=== PATIENT | female | born 1940 | race Caucasian/White ===

== ENCOUNTER 2020-12-17 09:15 | Outpatient (CLI) | payer MEDICARE, OTHER, SELFPAY ==
[2020-12-17 09:55] LABS: Basophils Absolute Auto 0.1 K/mm3 (0.0-0.1); Basophils Percent Auto 1.2 % (0.2-1.2); Eosinophils Absolute Auto 0.2 K/mm3 (0-0.3); Eosinophils Percent Auto 3.8 % (0-4.4); Hematocrit 43.9 % (37.0-47.0); Hemoglobin 14.1 g/dL (12.0-15.0); Immature Granulocyte Absolute 0.01 K/mm3 (0.00-0.031); Immature Granulocyte Percent A 0.2 % (0-0.5); Lymphocytes Absolute Auto 2.13 K/mm3 (0.9-3.2); Lymphocytes Percent Auto 36.6 % (18.3-44.2); Mean Corpuscular HGB Conc 32.1 g/dl (32-36); Mean Corpuscular Hemoglobin 31.1 pg (26-34); Mean Corpuscular Volume 96.7 fl (80-100); Mean Platelet Volume 11.3 fl (7.4-10.4); Monocytes Absolute Auto 0.5 K/mm3 (0.1-0.6); Monocytes Percent Auto 7.9 % (2.6-8.5); Neutrophils Absolute Auto 2.9 K/mm3 (1.3-6.7); Neutrophils Percent Auto 50.3 % (45.5-73.1); Platelet Count Result 175 k/mm3 (150-375); Red Blood Count 4.54 M/mm3 (4.2-5.4); Red Cell Distribution Width 13.2 % (11.5-14.5); White Blood Count 5.8 K/mm3 (4.5-10.0)
[2020-12-17 10:17] LABS: Alanine Aminotransferase 19 U/L (4-35); Albumin Level 4.4 g/dL (3.5-5.1); Alkaline Phosphatase 107 U/L (38-126); Anion Gap 8 mmol/L (8-16); Aspartate Amino Transferase 28 U/L (14-36); Bilirubin,Total 0.7 mg/dL (0.2-1.3); Blood Urea Nitrogen 36 mg/dL (7-17); Calcium 9.8 mg/dL (8.4-10.2); Carbon Dioxide 28 mmol/L (22-30); Chloride 106 mmol/L (98-107); Estimated Glomerular Filt Rate 33; Glucose 112 mg/dL (65-105); Potassium 4.9 mmol/L (3.4-5.0); Sodium 142 mmol/L (137-145)
== END 2020-12-17 09:16 | disposition home or self-care (01) ==
LOC: ANHLAB 09:24
PROVIDERS: PCP Internal Medicine; Visit Provider Internal Medicine Cardiovascular Disease
DX: R06.00 Dyspnea, unspecified (principal)
CPT/HCPCS: 36415; 80053; 84443; 85025

== ENCOUNTER 2021-02-02 08:34 | Outpatient (CLI) | payer MEDICARE, OTHER, SELFPAY ==
--- NOTE | 2021-02-18 14:57 | WPDHOMESLEEP ---
Sleep Study - Home Unattended Date of Study: 02/02/21 Ordering Provider: Edwardo Clarke MD Interpreting Provider: Jolly Song MD Home Sleep Study Type: Apnea Link Air Height: 1.6 m Weight: 99.79 kg Body Mass Index: 38.9 Neck Circumference (inches): 12.5 [place]: 8 Reason for Sleep Study history of untreated obstructive sleep apnea, increased shortness of breath with exertion, fatigue and swelling Sleep History Lilia Acuna is a 80 year old female referred by Dr Clarke for untreated obstructive sleep apnea. She is having increasing shortness of breath with exertion and increased lower extremity swelling. She has shortness of breath, fatigue, poor exercise tolerance and lower extremity swelling. She has nasal allergies. Her sleep evaluation is requested to see if sleep apnea is the cause for a many of the symptoms. She does not awaken from sleep feeling short of breath. She does not awaken at night with heartburn, belching or coughing. She rarely snores. She does not snore loudly enough that others complain about it. She frequently has trouble sleep with a cold. She does not wake up gasping for breath at night. She occasionally has breathing problems observed by others during the night. She does not sweat excessively at night or noticed her heart pounding or beating irregularly at night. She does not fall asleep during the day nor fall asleep involuntarily. She does not fall asleep while driving. She does not fall asleep while exerting physical effort. She does not have loss of muscle tone with strong emotion. She does not have daytime difficulties due to excessive sleepiness. She does not feel paralyzed on waking or falling asleep, and does not have vivid dreamlike scenes upon awakening or falling asleep. She is not afraid to go to sleep. She does not have nightmares. She occasionally remembers her dreams. She occasionally has racing thoughts. She does not feel sad, depressed or anxious. She does not have muscular tension. She does not notice parts of her body jerking. She does not kick at night. She occasionally has crawling and aching feelings in her legs. She occasionally has leg pain at night. She does not have morning jaw pain. She does not grind her teeth during sleep. She frequently is bothered by pain during the day and awakened by pain during the night. She frequently wakes up feeling stiff in the morning with sore or achy muscles. She never wakes up with pain in the spine. Normal bedtime is 10:30 p.m. falling asleep within 1/2 hour waking 1 or 2 times at night to urinate and then she returns to sleep within 30 minutes or sometimes as long as an hour. She wakes the morning between 8 and 9:00 a.m.. Her weekend schedule is the same. She takes naps in the afternoon or evening. A short nap may be refreshing. She feels better in the morning compared other times of day. Habits: Never smoked tobacco. Caffeine 1 or 2 daily. No alcohol or recreational drugs. [facility] Past Medical History Medical History (Updated 02/18/21 @ 15:13 by Jolly Song MD) Arthritis Hyperlipidemia Hypertension Lower extremity edema Obstructive sleep apnea Surgical History Surgical History (Updated 02/18/21 @ 15:17 by Jolly Song MD) History of appendectomy History of left knee replacement History of tonsillectomy Family History Family History (Updated 02/18/21 @ 15:15 by Jolly Song MD) Mother Breast cancer Lung cancer Father Cerebrovascular accident Diabetes mellitus Sibling Heart disease Social History Social History (Updated 02/18/21 @ 15:16 by Jolly Song MD) Smoking status: Never smoker Alcohol intake: never Substance use: never Medications Medications: atorvastatin 10 mg a day calcium carbonate/ vitamin D3 1 tablet b.i.d. vitamin B12 a 1000 mcg by mouth b.i.d. fluticasone propionate 50 mcg per spray 2 sprays each nostril daily telmisartan 80 mg a day amlodipine
[2021-02-18 15:31] VITALS: BMI 38.9
== END 2021-02-03 10:02 | disposition home or self-care (01) ==
LOC: ANHCSM 08:34
PROVIDERS: PCP Internal Medicine; Visit Provider Internal Medicine Cardiovascular Disease
DX: G47.33 Obstructive sleep apnea (adult) (pediatric) (principal)
CPT/HCPCS: 95806

== ENCOUNTER → 2021-03-05 04:59 | Outpatient (CLI) | payer MEDICARE, OTHER, SELFPAY ==
[2021-03-05 18:47] LABS: SARS-CoV-2 RNA PCR Negative
== END ==
PROVIDERS: PCP Internal Medicine; Visit Provider Internal Medicine Critical Care Medicine
DX: Z01.812 Encounter for preprocedural laboratory examination (principal); Z20.822 Contact with and (suspected) exposure to COVID-19
CPT/HCPCS: C9803; U0003; U0005

== ENCOUNTER 2021-03-08 09:26 | Outpatient (CLI) | payer MEDICARE, OTHER, SELFPAY ==
--- NOTE | 2021-03-26 09:02 | WPDSLEEPSTUD ---
Sleep Study Date of Study: 03/08/21 Ordering Provider: Edwardo Clarke MD Interpreting Physician: Jolly Song MD Sleep Study Type: CPAP Titration Height: 1.6 m Weight: 99.8 kg Body Mass Index: 38.9 Neck Circumference (inches): 14 [place]: 7 Reason for Sleep Study Home Sleep Test February 02, 2021 with mild obstructive sleep apnea, AHI 6, 42% central events 58% obstructive events, presents for CPAP titration Sleep History Lilia Acuna is a 80 year old female referred by Dr Clarke for untreated obstructive sleep apnea. She is having increasing shortness of breath with exertion and increased lower extremity swelling. She has shortness of breath, fatigue, poor exercise tolerance and lower extremity swelling. She has nasal allergies. Her sleep evaluation is requested to see if sleep apnea is the cause for a many of the symptoms. She does not awaken from sleep feeling short of breath. She does not awaken at night with heartburn, belching or coughing. She rarely snores. She does not snore loudly enough that others complain about it. She frequently has trouble sleep with a cold. She does not wake up gasping for breath at night. She occasionally has breathing problems observed by others during the night. She does not sweat excessively at night or noticed her heart pounding or beating irregularly at night. She does not fall asleep during the day nor fall asleep involuntarily. She does not fall asleep while driving. She does not fall asleep while exerting physical effort. She does not have loss of muscle tone with strong emotion. She does not have daytime difficulties due to excessive sleepiness. She does not feel paralyzed on waking or falling asleep, and does not have vivid dreamlike scenes upon awakening or falling asleep. She is not afraid to go to sleep. She does not have nightmares. She occasionally remembers her dreams. She occasionally has racing thoughts. She does not feel sad, depressed or anxious. She does not have muscular tension. She does not notice parts of her body jerking. She does not kick at night. She occasionally has crawling and aching feelings in her legs. She occasionally has leg pain at night. She does not have morning jaw pain. She does not grind her teeth during sleep. She frequently is bothered by pain during the day and awakened by pain during the night. She frequently wakes up feeling stiff in the morning with sore or achy muscles. She never wakes up with pain in the spine. Normal bedtime is 10:30 p.m. falling asleep within 1/2 hour waking 1 or 2 times at night to urinate and then she returns to sleep within 30 minutes or sometimes as long as an hour. She wakes the morning between 8 and 9:00 a.m.. Her weekend schedule is the same. She takes naps in the afternoon or evening. A short nap may be refreshing. She feels better in the morning compared other times of day. Habits: Never smoked tobacco. Caffeine 1 or 2 daily. No alcohol or recreational drugs. [facility] Past Medical History Medical History Arthritis Hyperlipidemia Hypertension Lower extremity edema Obstructive sleep apnea Surgical History Surgical History History of appendectomy History of left knee replacement History of tonsillectomy Family History Family History Mother Breast cancer Lung cancer Father Cerebrovascular accident Diabetes mellitus Sibling Heart disease Social History Social History Smoking status: Never smoker Alcohol intake: never Substance use: never Medications Medications: amlodipine 10 mg a day atorvastatin 10 mg; a half tablet daily calcium carbonate with vitamin-D 1 twice a day coli enzyme Q10 100 mg twice a day B12 a 1000 mcg b.i.d. Flonase nasal spray 2 sprays each
[2021-03-26 13:45] VITALS: BMI 38.9
== END 2021-03-09 07:35 | disposition home or self-care (01) ==
LOC: ANHCSM 09:27
PROVIDERS: PCP Internal Medicine; Visit Provider Internal Medicine Cardiovascular Disease
DX: G47.33 Obstructive sleep apnea (adult) (pediatric) (principal); Z68.39 Body mass index [BMI] 39.0-39.9, adult
CPT/HCPCS: 95811

== ENCOUNTER 2021-03-10 10:18 | Outpatient (CLI) | payer MEDICARE, OTHER, SELFPAY ==
[2021-03-10 11:15] LABS: Hemoglobin 12.4 g/dL (12.0-15.0); Mean Corpuscular HGB Conc 31.8 g/dl (32-36); Mean Corpuscular Hemoglobin 30.5 pg (26-34); Mean Corpuscular Volume 96.1 fl (80-100); Platelet Count Result 161 k/mm3 (150-375); Red Blood Count 4.06 M/mm3 (4.2-5.4); White Blood Count 5.4 K/mm3 (4.5-10.0)
[2021-03-10 11:19] LABS: Albumin Level 4.2 g/dL (3.5-5.1); Anion Gap 9 mmol/L (8-16); Blood Urea Nitrogen 26 mg/dL (7-17); Calcium 9.5 mg/dL (8.4-10.2); Carbon Dioxide 25 mmol/L (22-30); Chloride 111 mmol/L (98-107); Estimated Glomerular Filt Rate 43; Glucose 153 mg/dL (65-105); Sodium 145 mmol/L (137-145)
[2021-03-10 11:27] LABS: Complement C3 116 mg/dL (88-165)
[2021-03-10 11:27] LABS: Add Urine Microscopic? YES; Appearance Urine Clear (Clear); Bilirubin Urine Negative (Negative); Blood Urine Negative (Negative); Color Urine Straw (Yellow); Glucose Urine UA Negative (Negative); Ketones Urine Negative (Negative); Leukocyte Esterase Ur Trace LEU/UL (Negative); Mucus Urine Rare /lpf; Nitrate Urine Negative (Negative); Protein Urine Negative (Negative); RBC Urine 0-2 /hpf (0-2); Specific Grav Ur 1.011 (1.001-1.035); Squamous Epithelial Cell Urine Rare /hpf (Few); Urobilinogen Urine Negative mg/dL (<2.0)
[2021-03-10 11:28] LABS: Creatinine Urine 44.9 mg/dL; Total Protein Urine Random 11 mg/dL; Ur Ttl Prot Creatinine Ratio 0.24 mg/mg (0-0.20)
[2021-03-10 11:31] LABS: Parathyroid Intact 63.3 pg/mL (7.5-53.5)
[2021-03-10 12:07] LABS: Erythrocyte Sedimentation Rate 28 mm/hr (0-20)
[2021-03-12 15:16] LABS: Complement Total CH50 >60 U/mL (31-60)
[2021-03-13 06:15] LABS: Kappa\\Lambda Light Chains 1.31 (0.26-1.65); Lambda Light Chain 19.9 mg/L (5.7-26.3)
== END 2021-03-10 10:19 | disposition home or self-care (01) ==
PROVIDERS: PCP Internal Medicine; Visit Provider Internal Medicine Nephrology
DX: N18.32 Chronic kidney disease, stage 3b (principal)
CPT/HCPCS: 36415; 80069; 81001; 82570; 83883; 83970; 84156; 85027; 85652; 86038; 86039; 86160; 86162; 86334; 87086; 87088

== ENCOUNTER 2021-03-12 10:20 | Outpatient (CLI) | payer MEDICARE, OTHER, SELFPAY ==
[2021-03-18 05:52] LABS: Albumin 49 %; Creat 24 Hr 0.96 g/24 h (0.50-2.15); Measured Kappa Chains <1.00 mg/dL (<2.00); Measured Lambda Chains <1.00 mg/dL (<2.00); Pro/Creat Ratio 135 mg/g creat (<=114)
== END 2021-03-12 10:21 | disposition home or self-care (01) ==
PROVIDERS: PCP Internal Medicine; Visit Provider Internal Medicine Nephrology
DX: N18.32 Chronic kidney disease, stage 3b (principal)
CPT/HCPCS: 86335

== ENCOUNTER → 2021-03-17 10:49 | Outpatient (CLI) | payer MEDICARE, OTHER, SELFPAY ==
--- NOTE | ~2021-03-17 | US_ITS ---
EXAMINATION: US renal BI DATE: 03/17/2021 11:08 INDICATION: Stage III B chronic kidney disease TECHNIQUE: Multiple grayscale and Doppler ultrasound images of the kidneys were obtained. COMPARISON: None. FINDINGS: The right kidney measures 8.9 x 4.9 x 4.7 cm. The left kidney measures 9.5 x 4.8 x 4.8 cm a nd contains a 1.6 cm cyst. The kidneys demonstrate normal parenchymal echogenicity. There is no hydro nephrosis. The bladder is normal. IMPRESSION: 1. Normal kidneys without hydronephrosis. Reviewed, dictated and finalized at location B.
== END ==
PROVIDERS: PCP Internal Medicine; Visit Provider Internal Medicine Nephrology
DX: N18.32 Chronic kidney disease, stage 3b (principal)
CPT/HCPCS: 76775

== ENCOUNTER 2021-03-29 09:38 | Outpatient (CLI) | payer MEDICARE, OTHER, SELFPAY ==
[2021-03-29 10:33] LABS: Albumin Level 4.3 g/dL (3.5-5.1); Anion Gap 10 mmol/L (8-16); Blood Urea Nitrogen 44 mg/dL (7-17); Calcium 9.7 mg/dL (8.4-10.2); Carbon Dioxide 23 mmol/L (22-30); Chloride 109 mmol/L (98-107); Estimated Glomerular Filt Rate 31; Glucose 85 mg/dL (65-105); Phosphorus 4.2 mg/dL (2.5-4.5); Potassium 4.3 mmol/L (3.4-5.0); Sodium 142 mmol/L (137-145)
== END 2021-03-29 09:39 | disposition home or self-care (01) ==
LOC: ANHLAB 09:45
PROVIDERS: PCP Internal Medicine; Visit Provider Internal Medicine Nephrology
DX: R94.4 Abnormal results of kidney function studies (principal)
CPT/HCPCS: 36415; 80069

== ENCOUNTER → 2021-04-02 14:43 | Outpatient (CLI) | payer MEDICARE, OTHER, SELFPAY ==
--- NOTE | ~2021-04-02 | CT_ITS ---
EXAMINATION: CT abdomen pelvis wo con DATE: 04/02/2021 15:03 INDICATION: Generalized edema. TECHNIQUE: Computed tomography (CT) of the abdomen and pelvis was performed without intravenous contr ast. Automated exposure control and iterative reconstruction technique were employed. The dose-length product was 986.90 mGy-cm. COMPARISON: None FINDINGS: Calcified nodule at the lingula along with several scattered splenic calcifications consistent with o ld granulomatous disease. Mild bronchiectasis in the bilateral lower lobes. Scattered groundglass and reticular opacities at the bilateral lung bases which in the acute setting could represent mild pulm onary edema or more chronic interstitial lung disease with nonspecific interstitial pneumonia (NSIP) pattern heart size is normal. No pericardial or pleural effusion. Small sliding-type hiatal hernia. L iver, gallbladder, pancreas and bilateral adrenal glands are normal. No urolithiasis or hydronephrosi s. There are few small peripelvic cysts at the right renal hilum. There is moderate colonic diverticu losis with a sigmoid predominance. There is no adjacent inflammatory change to suggest diverticulitis . No bowel obstruction. Appendix is not visualized and reportedly surgically absent. Bladder, uterus and bilateral adnexa are unremarkable. No free intraperitoneal gas or fluid. No pathologically enlar ged abdominal or pelvic lymphadenopathy. L5 spondylolysis with bilateral pars intra-articular is defe cts and 7 mm anterolisthesis on S1. There are bridging osteophytes at multiple levels in the lower th oracic spine, consistent with diffuse idiopathic skeletal hyperostosis (DISH). Mild to moderate bilat eral hip osteoarthritis. IMPRESSION: 1. Bibasilar lung disease which could represent acute pulmonary edema or more chronic interstitial fi brosis with NSIP pattern. 2. Sigmoid predominant diverticulosis. 3. Small sliding-type hiatal hernia. Reviewed, dictated and finalized at location A. IMPRESSION: 1. Bibasilar lung disease which could represent acute pulmonary edema or more c hronic interstitial fibrosis with NSIP pattern. 2. Sigmoid predominant diverticulosis. 3. Small sliding-type hiatal hernia.
== END ==
PROVIDERS: PCP Internal Medicine; Visit Provider Internal Medicine Nephrology
DX: R60.1 Generalized edema (principal); J98.4 Other disorders of lung; K57.30 Diverticulosis of large intestine without perforation or abscess without bleeding; K44.9 Diaphragmatic hernia without obstruction or gangrene
CPT/HCPCS: 74176

== ENCOUNTER 2021-04-06 10:33 | Outpatient (CLI) | payer MEDICARE, OTHER, SELFPAY ==
--- NOTE | ~2021-04-06 | US_ITS ---
EXAMINATION: US venous doppler [facility] DATE: 04/06/2021 11:05 INDICATION: Lower limb swelling TECHNIQUE: Grayscale ultrasound images without and with compression and Doppler ultrasound images of the bilateral lower extremity veins were obtained. COMPARISON: None. FINDINGS: The visualized portions of right common femoral vein, profunda (deep) femoral vein, femoral vein, pop liteal vein, posterior tibial veins, peroneal veins, gastrocnemius vein and greater saphenous vein ou tflow are patent. The visualized portions of left common femoral vein, profunda femoral vein, femoral vein, popliteal v ein, posterior tibial veins, peroneal veins, gastrocnemius vein and greater saphenous vein outflow ar e patent. IMPRESSION: 1. No deep venous thrombosis in either lower limb. Reviewed, dictated and finalized at location A.
== END 2021-04-06 10:34 | disposition home or self-care (01) ==
PROVIDERS: PCP Internal Medicine; Visit Provider Internal Medicine Nephrology
DX: R60.9 Edema, unspecified (principal)
CPT/HCPCS: 93970

== ENCOUNTER 2021-04-09 10:11 | Outpatient (CLI) | payer MEDICARE, OTHER, SELFPAY ==
[2021-04-09 11:17] LABS: Albumin Level 4.5 g/dL (3.5-5.1); Anion Gap 11 mmol/L (8-16); Blood Urea Nitrogen 58 mg/dL (7-17); Calcium 10.3 mg/dL (8.4-10.2); Carbon Dioxide 26 mmol/L (22-30); Chloride 104 mmol/L (98-107); Estimated Glomerular Filt Rate 20; Glucose 133 mg/dL (65-110); Phosphorus 4.5 mg/dL (2.5-4.5); Potassium 5.1 mmol/L (3.4-5.0); Sodium 141 mmol/L (137-145)
[2021-04-09 14:12] LABS: Creatinine Urine 109.3 mg/dL; Total Protein Urine Random 11 mg/dL
== END 2021-04-09 10:12 | disposition home or self-care (01) ==
PROVIDERS: PCP Internal Medicine; Visit Provider Internal Medicine Nephrology
DX: N18.32 Chronic kidney disease, stage 3b (principal)
CPT/HCPCS: 36415; 80069; 82570; 84156

== ENCOUNTER 2021-04-30 09:02 | Outpatient (CLI) | payer MEDICARE, OTHER, SELFPAY ==
[2021-04-30 10:15] LABS: Hemoglobin 13.7 g/dL (12.0-15.0); Mean Corpuscular HGB Conc 31.9 g/dl (32-36); Mean Corpuscular Hemoglobin 29.8 pg (26-34); Mean Corpuscular Volume 93.7 fl (80-100); Mean Platelet Volume 11.4 fl (7.4-10.4); Platelet Count Result 165 k/mm3 (150-375); Red Blood Count 4.59 M/mm3 (4.2-5.4); Red Cell Distribution Width 12.9 % (11.5-14.5); White Blood Count 5.4 K/mm3 (4.5-10.0)
[2021-04-30 11:08] LABS: Albumin Level 4.5 g/dL (3.5-5.1); Anion Gap 10 mmol/L (8-16); Blood Urea Nitrogen 63 mg/dL (7-17); Calcium 10.1 mg/dL (8.4-10.2); Carbon Dioxide 26 mmol/L (22-30); Chloride 105 mmol/L (98-107); Estimated Glomerular Filt Rate 19; Glucose 108 mg/dL (65-110); Phosphorus 4.5 mg/dL (2.5-4.5); Potassium 4.5 mmol/L (3.4-5.0); Sodium 141 mmol/L (137-145)
[2021-04-30 14:56] LABS: Creatinine Urine 29.2 mg/dL; Total Protein Urine Random 10 mg/dL; Ur Ttl Prot Creatinine Ratio 0.34 mg/mg (0-0.20)
== END 2021-04-30 09:03 | disposition home or self-care (01) ==
LOC: ANHLAB 09:08
PROVIDERS: PCP Internal Medicine; Visit Provider Internal Medicine Nephrology
DX: N18.32 Chronic kidney disease, stage 3b (principal)
CPT/HCPCS: 36415; 80069; 82570; 84156; 85027

== ENCOUNTER 2021-05-17 15:34 | Inpatient (IN) | payer MEDICARE, OTHER, SELFPAY ==
[2021-05-17] VITALS (17 sets, daily range): BP systolic 110–143; BP diastolic 43–100; PULSE 43–88; RESP 12–23; TEMP 36.5; O2SAT 94–100; BMI 38.1
--- NOTE | ~2021-05-17 | US_ITS ---
EXAMINATION: US renal BI DATE: 05/18/2021 09:52 INDICATION: Renal failure TECHNIQUE: Multiple ultrasound grayscale images of the kidneys were obtained. COMPARISON: CT dated 04/02/2021 and ultrasound dated 03/17/2021 FINDINGS: The right kidney measures 9.2 x 5.0 x 4.1 cm. The left kidney measures 9.8 x 4.0 x 4.0 cm. The kidney s demonstrate normal echogenicity. There is no hydronephrosis in either kidney. No stones identified . The bladder is normal with bilateral ureteral jets visualized on color Doppler. IMPRESSION: 1. Normal kidneys without hydronephrosis. Reviewed, dictated and finalized at location A.
--- NOTE | ~2021-05-17 | CT_ITS ---
EXAMINATION: CT chest high resolution wo co DATE: 05/18/2021 09:18 INDICATION: Exertional dyspnea possible NSIP TECHNIQUE: Computed tomography (CT) of the chest was performed without intravenous contrast. Addition al 3D reconstructions utilizing coronal maximum intensity projection (MIP) were performed. Automated exposure control and iterative reconstruction technique were employed. The dose-length product was 50 1.10 mGy-cm. COMPARISON: None FINDINGS: There is peripheral and basilar predominant groundglass opacity with associated irregular septal line thickening. No evident associated honeycombing. There is mild bronchiectasis in the basilar segments of the bilateral lower lobes. A couple calcified nodules in the lingula along with calcified AP wind ow lymph node and multiple splenic calcifications, all consistent with old granulomatous disease. No pleural effusion. Heart size is normal. Small amount of aortic valve calcification. No pericardial ef fusion. No pathologically enlarged thoracic lymphadenopathy. Thoracic aorta is normal in caliber. Sma ll sliding-type hiatal hernia. There are bridging osteophytes at multiple levels in the spine, consis tent with diffuse idiopathic skeletal hyperostosis (DISH). IMPRESSION: 1. Peripheral and lower lung predominant interstitial lung disease with appearance favoring nonspecif ic interstitial pneumonia (NSIP) over either desquamative interstitial pneumonia (DIP) or usual inter stitial pneumonia (UIP). Differential in the acute setting would also include mild pulmonary edema. Reviewed, dictated and finalized at location A. IMPRESSION: 1. Peripheral and lower lung predominant interstitial lung disease with appeara nce favoring nonspecific interstitial pneumonia (NSIP) over either desquamative interstitial pneumonia (DIP) or usual interstitial pneumonia (UIP). Differenti al in the acute setting would also include mild pulmonary edema.
--- NOTE | ~2021-05-17 | XR_ITS ---
EXAMINATION: XR chest 2V EXAM DATE: 05/17/2021 16:12 INDICATION: Shortness of breath, taken off water pill. TECHNIQUE: Frontal and lateral projections of the chest obtained and reviewed. There is no prior kylah dy for comparison. FINDINGS: Left midlung zone granuloma. The lungs are otherwise clear. There are no pleural effusions . The cardiomediastinal silhouette is within normal limits. There is no pneumothorax suspected. Candelario duarte has diffuse idiopathic skeletal hyperostosis (DISH). IMPRESSION: No acute cardiopulmonary findings. Reviewed, dictated and finalized at location B.
--- NOTE | 2021-05-17 15:46 | ECG_ITS ---
Measurements Intervals [place] Rate: 46 P: 52 AL: 136 QRS: -15 QRSD: 90 T: 26 QT: 434 QTc: 381 Interpretive Statements SINUS BRADYCARDIA DELAYED PRECORDIAL R/S TRANSITION LOW QRS VOLTAGE IN PRECORDIAL LEADS INFERIOR INFARCT, AGE INDETERMINATE BASELINE ARTIFACT- I, II, III, AVR, AVL ABNORMAL ECG Electronically Signed On 05-17-2021 16:19:30 CDT by Case Swanson D.O.
[2021-05-17 16:13] LABS: Basophils Percent Auto 0.7 % (0.2-1.2); Eosinophils Absolute Auto 0.1 K/mm3 (0-0.3); Hematocrit 41.1 % (37.0-47.0); Hemoglobin 13.1 g/dL (12.0-15.0); Immature Granulocyte Absolute 0.01 K/mm3 (0.00-0.031); Immature Granulocyte Percent A 0.2 % (0-0.5); Lymphocytes Absolute Auto 2.07 K/mm3 (0.9-3.2); Lymphocytes Percent Auto 34.4 % (18.3-44.2); Mean Corpuscular HGB Conc 31.9 g/dl (32-36); Mean Corpuscular Volume 94.1 fl (80-100); Mean Platelet Volume 11.5 fl (7.4-10.4); Monocytes Absolute Auto 0.6 K/mm3 (0.1-0.6); Monocytes Percent Auto 10.3 % (2.6-8.5); Neutrophils Absolute Auto 3.2 K/mm3 (1.3-6.7); Neutrophils Percent Auto 52.4 % (45.5-73.1); Platelet Count Result 165 k/mm3 (150-375); Red Blood Count 4.37 M/mm3 (4.2-5.4); Red Cell Distribution Width 13.2 % (11.5-14.5)
--- NOTE | 2021-05-17 16:17 | ED.RECABL ---
HPI - Recheck/Abnormal Lab/Rx General Chief Complaint: Recheck/Abnormal Lab/Rx Stated Complaint: renal failure, sent to be admitted Time Seen by Provider: 05/17/21 16:10 Source: patient Mode of arrival: ambulatory Limitations: no limitations History of Present Illness HPI narrative: Patient is a 80-year-old female sent here by her ui designer due to elevated creatinine. Patient states that her ui designer told her that kidney function and to go to the emergency room. Patient states that she was really taken off her water pill to see if her kidney function improves but has not and actually worse so she was sent here for further evaluation treatment. Patient denies any symptoms. Patient denies any headache, dizziness, chest pain, shortness of breath, abdominal pain, nausea, vomiting, diarrhea, fever or chills. Related Data Home Medications Medication Instructions Recorded Confirmed CoQ-10 100 mg PO BID 05/17/21 amlodipine 10 mg PO DAILY 05/17/21 atorvastatin 5 mg PO DAILY 05/17/21 cyanocobalamin (vitamin B-12) 1,000 mcg PO DAILY 05/17/21 isosorbide dinitrate 10 mg PO TID 05/17/21 telmisartan 80 mg PO DAILY 05/17/21 Allergies Allergy/AdvReac Type Severity Reaction Status Date / Time No Known Allergies Allergy Verified 05/17/21 18:52 Review of Systems Review of Systems: All systems reviewed & are unremarkable except as noted in HPI and below Constitutional: Constitutional: Denies body ache(s), Denies chills, Denies excessive sweating, Denies fatigue, Denies fever(s), Denies headache(s), Denies lethargy, Denies malaise, Denies weakness and Denies weight loss Eyes: Eyes: Denies blurry vision, Denies change in vision and Denies loss of vision ENT: Denies dizziness, Denies ear discharge, Denies headache(s), Denies lip swelling, Denies epistaxis, Denies nasal congestion, Denies neck pain, Denies throat swelling and Denies tongue swelling Cardiovascular: Cardiovascular: Denies chest pain, Denies chest pain at rest, Denies chest pain with activity, Denies diaphoresis, Denies rapid heart rate, Denies edema, Denies irregular heart rhythm, Denies lightheadedness, Denies palpitations, Denies dyspnea and Denies dyspnea on exertion Respiratory: Respiratory: Denies chest congestion, Denies cough, Denies hemoptysis, Denies dyspnea and Denies dyspnea on exertion Gastrointestinal: Gastrointestinal: Denies abdominal pain, Denies melena, Denies hematochezia, Denies diarrhea, Denies nausea, Denies vomiting and Denies hematemesis Musculoskeletal: Musculoskeletal: Denies abnormal gait, Denies deformity, Denies joint swelling, Denies limited range of motion, Denies neck pain and Denies numbness Neurologic: Denies Abnormal speech present, Denies abnormal gait, Denies confusion, Denies dizziness, Denies headache(s), Denies focal weakness, Denies loss of vision, Denies numbness, Denies Other visual disturbances, Denies Sensory deficit (Neuro) and Denies weakness Psychiatric: Psychiatric: Denies confusion, Denies depression, Denies auditory hallucinations, Denies homicidal ideation and Denies suicidal ideation Endocrine: Endocrine: Denies cold intolerance, Denies excessive sweating, Denies fatigue, Denies heat intolerance and Denies palpitations Hematologic/Lymphatic: Hematologic/Lymphatic: Denies easy bleeding and Denies easy bruising Allergic/Immunologic: Allergic/Immunologic: Denies lip swelling, Denies throat swelling and Denies tongue swelling PMFSH Past Medical History Medical History Arthritis Hyperlipidemia Hypertension Lower extremity edema Obstructive sleep apnea Surgical History Surgical History History of appendectomy History of left knee replacement History of tonsillectomy Family History Family History Mother Breast cancer Lung cancer Father Cerebrova
[2021-05-17 16:25] LABS: INR 0.9; Partial Thromboplastin Time 25.2 SECONDS (22.3-36.8)
[2021-05-17 16:30] LABS: Anion Gap 13 mmol/L (8-16); Blood Urea Nitrogen 103 mg/dL (7-17); Calcium 10.1 mg/dL (8.4-10.2); Carbon Dioxide 22 mmol/L (22-30); Chloride 102 mmol/L (98-107); Estimated CRCL calculation 14 ml/min; Estimated Glomerular Filt Rate 13; Glucose 103 mg/dL (65-110); Potassium 5.8 mmol/L (3.4-5.0); Sodium 137 mmol/L (137-145)
[2021-05-17 16:42] LABS: NT Pro B Type Natriuretic Pept 244 pg/mL (5-100); Troponin I < 0.012 ng/mL (0.000-0.034)
[2021-05-17] MEDS: LACTATED RINGERS 1,000 ML 125 ML IV CONT (19:01)
[2021-05-17] MEDS: DEXTROSE 50% 25 GM/50 ML SYRINGE IV PUSH (19:02)
[2021-05-17] MEDS: INSULIN HUMAN REGULAR (*BKC) 100 UNITS/ML 10 UNITS IV PUSH (19:02)
--- NOTE | 2021-05-17 19:15 | PC.NURSE ---
assumed care of pt at this time. Report from Taylor PEREZ
[2021-05-17] MEDS: ALBUTEROL SULFATE NEB 2.5 MG/0.5 ML INH 5 MG INHALATION (20:03)
--- NOTE | 2021-05-17 21:16 | PM.IMHP ---
H&P: HPI History of Present Illness Date/Time: 05/17/21 21:16 Chief Complaint: abnormal labs Narrative: Patient is a 80-year-old female sent here by her automobile service writer due to elevated creatinine. Patient had her blood work done earlier today at her primary care's office. She was called by her automobile service writer to go to the ER for further evaluation due to worsening of her kidney function. She was noted to have creatinine of 3.3 with potassium of 5.8. She has been given albuterol neb and insulin and dextrose in the ER for hyperkalemia. She has also been started on IV fluids in the ER. She states that she has been feeling short of breath for for years so for which her primary care doctor referred her to a print controller. She saw Dr. faith and had workup done with echocardiogram. Dr. Faith referred her to Dr. Salinas due to bilateral lower extremity edema. She was already on Lasix 40 mg twice a day and amlodipine 10 mg a day. After seeing Dr. Salinas Lasix was increased to 3 times a day and amlodipine was lowered to 5 mg a day since then which is couple weeks ago she has lost 16 lb and has also resolved her lower extremity edema. She is noted to have a baseline creatinine of 1.2 back in February which has progressively gotten worse to around mid 2s in March and now 3.3. She denies any other symptoms in particular nose chest pain or nausea vomiting or abdominal pain. No diarrhea or constipation reported. She also has not been treated with any antibiotics recently or any new medication that was started other than what is mentioned above. She is admitted for further evaluation and manage Review of Systems Review of Systems: - CONSTITUTIONAL: Reports weight loss, denies fever and chills. - HEENT: Denies changes in vision and hearing - RESPIRATORY: Reports chronic SOB on exertion and denies cough. - CV: Denies palpitations and CP. - GI: Denies abdominal pain, nausea, vomiting and diarrhea. - : Denies dysuria and urinary frequency. - MSK: Denies myalgia and joint pain. - SKIN: Denies rash and pruritus. - NEUROLOGICAL: Denies headache and syncope. - PSYCHIATRIC: Denies recent changes in mood. Denies anxiety and depression. All systems reviewed & are unremarkable except as noted in HPI and below Constitutional: Constitutional: Reports fatigue and Reports weakness Neurologic: Reports weakness Endocrine: Endocrine: Reports fatigue [facility] Past Medical History Medical History (Updated 05/17/21 @ 22:11 by Dedrick Stewart MD) Arthritis Hyperlipidemia Hypertension Lower extremity edema Obstructive sleep apnea Surgical History Surgical History History of appendectomy History of left knee replacement History of tonsillectomy Family History Family History Mother Breast cancer Lung cancer Father Cerebrovascular accident Diabetes mellitus Sibling Heart disease Social History Social History Smoking status: Never smoker Alcohol intake: never Substance use: never Meds Home Medications and Allergies Home Medications Medication Instructions Recorded Confirmed Type CoQ-10 100 mg PO BID 05/17/21 History amlodipine 10 mg PO DAILY 05/17/21 History atorvastatin 5 mg PO DAILY 05/17/21 History cyanocobalamin (vitamin B-12) 1,000 mcg PO DAILY 05/17/21 History isosorbide dinitrate 10 mg PO TID 05/17/21 History telmisartan 80 mg PO DAILY 05/17/21 History Allergies Allergy/AdvReac Type Severity Reaction Status Date / Time No Known Allergies Allergy Verified 05/17/21 21:52 Vital Signs Vital Signs - 24 hr 05/17/21 15:41 05/17/21 16:25 05/17/21 16:30 Temperature 97.7 F Pulse Rate 50 L 49 L 44 L Respiratory Rate 20 13 14 Blood Pressure 143/76 H Pulse Oximetry 97 98 98 05/17/21 16:31 05/17/21 16:45 05/17/21 17:13 [place]a
--- NOTE | 2021-05-17 21:57 | ADMGEN ---
This patient, Lilia Acuna, was admitted to Medical Room 341-01. Patient/family oriented to hospital policies and general routines including ID bracelet, bed and alarms, visiting hours, pain management, procedures, bathroom and other care routines, personal items, smoking policy, room service/diet, and visiting hours. Information on how to activate the Rapid Response Team has been discussed. Patient/Family are encouraged to report perceived risks to care and to ask questions if they do not understand what they are told or what they should do.
[2021-05-17] MEDS: SODIUM POLYSTYRENE SULFONONATE 15 GM/60 ML BTL PO (22:32)
[2021-05-17] MEDS: LACTATED RINGERS 1,000 ML 100 ML IV CONT (22:32)
[2021-05-17 23:00] LABS: Creatine Kinase 36 U/L (30-135)
[2021-05-17 23:09] LABS: Complement C3 115 mg/dL (88-165)
[2021-05-18] VITALS (9 sets, daily range): BP systolic 102–145; BP diastolic 43–48; PULSE 47–70; RESP 16; TEMP 35.9–36.6; O2SAT 97–98
[2021-05-18] LABS: Add Urine Microscopic? NO; Appearance Urine Clear (Clear); Bilirubin Urine Negative (Negative); Blood Urine Negative (Negative); Color Urine Colorless (Yellow); Glucose Urine UA Negative (Negative); Ketones Urine Negative (Negative); Leukocyte Esterase Ur Negative LEU/UL (NEGATIVE); Nitrate Urine Negative (Negative); Protein Urine Negative (Negative); Specific Grav Ur 1.006 (1.001-1.035); Urobilinogen Urine Negative mg/dL (<2.0)
[2021-05-18 00:11] LABS: Creatinine Urine 37.9 mg/dL
[2021-05-18 00:16] LABS: Sodium Urine Random 21 meq/L
[2021-05-18 00:29] LABS: Eosinophil Urine None Seen % (None Seen)
[2021-05-18 07:08] LABS: Hematocrit 39.2 % (37.0-47.0); Hemoglobin 12.6 g/dL (12.0-15.0); Mean Corpuscular HGB Conc 32.1 g/dl (32-36); Mean Corpuscular Hemoglobin 30.2 pg (26-34); Mean Platelet Volume 11.8 fl (7.4-10.4); Platelet Count Result 140 k/mm3 (150-375); Red Blood Count 4.17 M/mm3 (4.2-5.4)
[2021-05-18 08:11] LABS: Anion Gap 10 mmol/L (8-16); Blood Urea Nitrogen 82 mg/dL (7-17); Calcium 9.9 mg/dL (8.4-10.2); Carbon Dioxide 25 mmol/L (22-30); Chloride 105 mmol/L (98-107); Estimated CRCL calculation 19 ml/min; Estimated Glomerular Filt Rate 19; Glucose 85 mg/dL (65-110); Potassium 5.4 mmol/L (3.4-5.0); Sodium 140 mmol/L (137-145)
[2021-05-18 08:36] LABS: Albumin Level 3.8 g/dL (3.5-5.1); Anion Gap 9 mmol/L (8-16); Blood Urea Nitrogen 84 mg/dL (7-17); Calcium 10.1 mg/dL (8.4-10.2); Carbon Dioxide 23 mmol/L (22-30); Chloride 108 mmol/L (98-107); Estimated CRCL calculation 18 ml/min; Estimated Glomerular Filt Rate 18; Glucose 88 mg/dL (65-110); Magnesium 2.9 mg/dL (1.6-2.3); Phosphorus 4.7 mg/dL (2.5-4.5); Potassium 5.4 mmol/L (3.4-5.0); Sodium 140 mmol/L (137-145)
[2021-05-18] MEDS: LACTATED RINGERS 1,000 ML 100 ML IV CONT ×2 (08:41→18:04)
[2021-05-18] MEDS: HEPARIN SODIUM 5,000 UNITS/ML VIAL 5000 UNITS SUB-Q ×3 (08:41→21:47)
[2021-05-18] MEDS: FLUTICASONE PROPIONATE 0.05% NA SPR 16 GM BTL (*BKC) 2 SPRAY NASAL (08:55)
[2021-05-18] MEDS: ISOSORBIDE DINITRATE 10 MG TABLET PO ×3 (09:02→18:05)
[2021-05-18] MEDS: ATORVASTATIN 5 MG TABLET PO (09:02)
[2021-05-18] MEDS: CYANOCOBALAMIN 1,000 MCG TABLET 1000 MCG PO ×2 (10:02→18:05)
--- NOTE | 2021-05-18 12:32 | PM.CNNEP ---
Assessment and Plan Assessment and plan (1) BRANDON (acute kidney injury): Code(s): N17.9 - Acute kidney failure, unspecified Status: Acute Assessment and Plan: suspect due to overdiuresis in the setting of ARB use creatinine better/improved since admission with gentle IVF hydration follow trend of repeat labs and UOP (2) Stage 3b chronic kidney disease: Code(s): N18.32 - Chronic kidney disease, stage 3b Status: Acute Assessment and Plan: creatinine had been running around 1.2 - 1.6mg/dl since early 2020 rise in creatinine noted in late March 2021 - leslie to 2.3 - 2.4mg/dl etiology due to hypertension and chronic prerenal azotemia due to necessity of diuretics to treat her swelling/edema and possibly BURT - swelling/edema thought to due to her pulmonary HTN (3) Hyperkalemia: Code(s): E87.5 - Hyperkalemia Status: Acute Assessment and Plan: due to #1 better s/p medical managment (4) Pulmonary HTN: Code(s): I27.20 - Pulmonary hypertension, unspecified Status: Acute Assessment and Plan: as documented by Echo suspect etiology of issues related to swelling/edema (5) Hypertension: Code(s): I10 - Essential (primary) hypertension Status: Acute Assessment and Plan: reasonable control at this time follow trend of hemodynamics Will continue to follow. History of Present Illness Reason for Consult Consult date: 05/18/21 Reason for consult: acute renal failure (on chronic kidney disease) Chief Complaint Chief complaint: Acute Renal Failure on Chronic Kidney Disease,Hype History of Present Illness Narrative: The patient is a 80-year-old female with a past medical history as outlined below who presented to [facility] Emergency room for further evaluation of abnormal labs. Apparently, she was instructed by one of her physicians (I am unclear if it was her rip and groove machine operator or her primary care physician) to come to the ER for her worsening renal function by recent outpatient labs. She does report that with her recent medication changes with regard to her diuretics in effort to optimize her lower extremity edema, she has had some issues and problems with dizziness and lightheadedness but reports no chest pain or worsening of her baseline shortness of breath. She does admit though that the higher dose /frequency of diuretics significantly improved her lower extremity edema. Workup and evaluation emergency room demonstrated the patient to be hemodynamically stable with repeat labs showing a creatinine up to 3.3 associated with mild hyperkalemia of 5.8. She received medical management for the hyperkalemia and given the concern/possibility of volume depletion given her high-dose diuretic therapy at baseline, she was started on gentle IV fluids and subsequent admitted the hospital for further evaluation and therapy. Since her admission, her renal function has improved with just the a for mentioned IV fluid hydration and holding diuretics as well as her ARB therapy. Her blood pressure was initially a little bit on the higher side of normal on presentation but has actually lowered decide despite being on less medications and on no diuretic therapy. She otherwise feels reasonably well and in no acute distress. Renal consultation was requested due to her acute kidney injury on chronic kidney disease. For review of her records, her renal function was relatively stable in the 1.2-1.6 mg/dL range earlier this year. It abruptly leslie in March which seems to correlate somewhat with her higher dose diuretic therapy. Her evaluation with regard to her lower extremity edema seemed indicate that her pulmonary hypertension was more to blame for this issue then any type of kidney disease. As mentioned, her diuretics were adjusted /titrated in effort to try to optimize her lower extremity edema but this appears to have been the suspec
--- NOTE | 2021-05-18 16:53 | PM.IMPN ---
Progress Note: A&P Assessment and Plan (1) Acute renal failure superimposed on chronic kidney disease: Qualifiers: Acute renal failure type: unspecified Chronic kidney disease stage: unspecified stage Qualified Code(s): N17.9 - Acute kidney failure, unspecified; N18.9 - Chronic kidney disease, unspecified Code(s): N17.9 - Acute kidney failure, unspecified; N18.9 - Chronic kidney disease, unspecified Status: Acute (2) Acute hyperkalemia: Code(s): E87.5 - Hyperkalemia Status: Acute (3) Obstructive sleep apnea: Code(s): G47.33 - Obstructive sleep apnea (adult) (pediatric) Status: Acute Additional Plan # Acute on chronic renal failure stage III baseline creatinine in February 16.2 currently at 3.3. Likely due to over-diuresis will gentle hydrate urine lytes renal ultrasound nephrology consultation. Hold diuretics and telmisartan # Exertional dyspnea with bilateral lower extremity edema diagnosed with diastolic heart failure sees Dr. faith. Not tolerated diuresis with worsening renal function and hence referred to renal. Lexiscan done in [address] abdomen also showed possible NSIP. She was also recently diagnosed with sleep apnea and currently using CPAP. # Possible NSIP possible pulmonary edema. High-resolution CT scan chest to further evaluate. BNP only 244 # BURT on CPAP # Lower extremity edema venous duplex was negative amlodipine lowered now resolved with diuretic use # Hypertension # Hyperlipidemia # Pulmonary hypertension # Obesity # DVT prophylaxis heparin subQ # full code 05/18 patient is 80-year-old female was seen by Nephrology for bilateral lower extremity edema initially was started on Lasix 40 mg b.i.d. and was increased to t.i.d. and ARB this did improve her lower extremity edema and she lost 16 lb however her serum creatinine leslie from 1.2 to 3.3 upon arrival, patient is seen by Nephrology, kidney ultrasound is normal without hydronephrosis, Lasix is on hold and started the patient gentle hydration 50 cc an hour and today her creatinine is 2.6 will continue present management, patient clinically stable denies any complaint sub dominant pain nausea or vomiting, chest pain or shortness of breath, appreciate nephrology further recommendation to follow Subjective Date/time seen: 05/18/21 16:53 Chief Complaint: abnormal labs Narrative: Patient is a 80-year-old female sent here by her lead programmer analyst due to elevated creatinine. Patient had her blood work done earlier today at her primary care's office. She was called by her lead programmer analyst to go to the ER for further evaluation due to worsening of her kidney function. She was noted to have creatinine of 3.3 with potassium of 5.8. She has been given albuterol neb and insulin and dextrose in the ER for hyperkalemia. She has also been started on IV fluids in the ER. She states that she has been feeling short of breath for for years so for which her primary care doctor referred her to a wind operations manager. She saw Dr. faith and had workup done with echocardiogram. Dr. Faith referred her to Dr. Salinas due to bilateral lower extremity edema. She was already on Lasix 40 mg twice a day and amlodipine 10 mg a day. After seeing Dr. Salinas Lasix was increased to 3 times a day and amlodipine was lowered to 5 mg a day since then which is couple weeks ago she has lost 16 lb and has also resolved her lower extremity edema. She is noted to have a baseline creatinine of 1.2 back in February which has progressively gotten worse to around mid 2s in March and now 3.3. She denies any other symptoms in particular nose chest pain or nausea vomiting or abdominal pain. No diarrhea or constipation reported. She also has not been treated with any antibiotics recently or any new medication that was started other than what is mentioned above. 05/18 patient is 80-year-old female was seen by Nephrology for bilateral lower extremity edema initially was started on Lasix 40 mg b
[2021-05-19] VITALS (9 sets, daily range): BP systolic 120–145; BP diastolic 46; PULSE 43–98; RESP 16–18; TEMP 35.8–37; O2SAT 96–98
[2021-05-19] MEDS: LACTATED RINGERS 1,000 ML 100 ML IV CONT ×2 (05:10→13:25)
[2021-05-19] MEDS: HEPARIN SODIUM 5,000 UNITS/ML VIAL 5000 UNITS SUB-Q ×3 (05:11→21:15)
[2021-05-19 06:30] LABS: Hematocrit 42.5 % (37.0-47.0); Mean Corpuscular HGB Conc 30.6 g/dl (32-36); Mean Corpuscular Volume 97.9 fl (80-100); Mean Platelet Volume 12.5 fl (7.4-10.4); Platelet Count Result 149 k/mm3 (150-375); Red Blood Count 4.34 M/mm3 (4.2-5.4); Red Cell Distribution Width 13.1 % (11.5-14.5); White Blood Count 5.2 K/mm3 (4.5-10.0)
[2021-05-19 07:00] LABS: Albumin Level 4.1 g/dL (3.5-5.1); Anion Gap 7 mmol/L (8-16); Blood Urea Nitrogen 52 mg/dL (7-17); Carbon Dioxide 23 mmol/L (22-30); Chloride 111 mmol/L (98-107); Estimated CRCL calculation 27 ml/min; Estimated Glomerular Filt Rate 29; Glucose 93 mg/dL (65-110); Phosphorus 3.7 mg/dL (2.5-4.5); Potassium 5.2 mmol/L (3.4-5.0); Sodium 141 mmol/L (137-145)
[2021-05-19] MEDS: amLODIPine BESYLATE 5 MG TABLET PO (09:19)
[2021-05-19] MEDS: CYANOCOBALAMIN 1,000 MCG TABLET 1000 MCG PO ×2 (09:19→18:10)
[2021-05-19] MEDS: ATORVASTATIN 5 MG TABLET PO (09:19)
[2021-05-19] MEDS: ISOSORBIDE DINITRATE 10 MG TABLET PO ×3 (09:20→18:10)
[2021-05-19] MEDS: FLUTICASONE PROPIONATE 0.05% NA SPR 16 GM BTL (*BKC) 2 SPRAY NASAL (09:20)
--- NOTE | 2021-05-19 12:42 | PM.PNNEP ---
Progress Note: A&P Assessment and Plan (1) BRANDON (acute kidney injury): Code(s): N17.9 - Acute kidney failure, unspecified Status: Acute Assessment and Plan: resolving suspect due to overdiuresis in the setting of ARB use creatinine better/improved since admission with gentle IVF hydration follow trend of repeat labs and UOP (2) Stage 3b chronic kidney disease: Code(s): N18.32 - Chronic kidney disease, stage 3b Status: Acute Assessment and Plan: creatinine had been running around 1.2 - 1.6mg/dl since early 2020 rise in creatinine noted in late March 2021 - leslie to 2.3 - 2.4mg/dl etiology due to hypertension and chronic prerenal azotemia due to necessity of diuretics to treat her swelling/edema and possibly BURT - swelling/edema thought to due to her pulmonary HTN this may be a situation where we have accept a higher creatinine in an effort to maintain her fluid status (3) Hyperkalemia: Code(s): E87.5 - Hyperkalemia Status: Acute Assessment and Plan: due to #1 better s/p medical managment (4) Pulmonary HTN: Code(s): I27.20 - Pulmonary hypertension, unspecified Status: Acute Assessment and Plan: as documented by Echo suspect etiology of issues related to swelling/edema (5) Hypertension: Code(s): I10 - Essential (primary) hypertension Status: Acute Assessment and Plan: reasonable control at this time follow trend of hemodynamics Would not be opposed to discharge later today or tomorrow if kidney function is stable/continues to improve. Will continue to follow. Subjective Date/time seen: 05/19/21 12:42 No acute issues or problems voiced at the time of my visit; tolerating IVFs since admission with improvement in renal function noted; no apparent distress noted; no events overnight or earlier this AM. Exam Narrative: General: WD/WN female in NAD Heart: normal S1 and S2; no rub Lungs: clear to auscultation Abdomen: soft, nontender, nondistended, positive bowel sounds Extremities: no cyanosis or clubbing; no edema Skin: warm and dry Objective Data Vital Signs Vital Signs: Vital Signs Temp Pulse Resp BP Pulse Ox 05/19/21 08:00 52 L 05/19/21 05:11 36.0 C L 46 L 16 120/46 L 96 05/19/21 04:00 47 L 05/19/21 00:00 44 L 05/18/21 20:08 35.9 C L 49 L 16 145/48 H 97 05/18/21 20:00 70 05/18/21 16:00 51 L 05/18/21 14:00 36.6 C 47 L 16 123/43 L 98 Intake/Output Intake/Output: Intake & Output 05/16/21 05/17/21 05/18/21 05/19/21 23:59 23:59 23:59 23:59 Intake Total 2560 2830 Output Total 1200 650 Balance 1360 2180 Meds/Results Medications: Active Medications Generic Name Dose Route Start Last Admin Trade Name Nimeshq PRN Reason Stop Dose Admin Amlodipine Besylate 5 mg 05/18/21 09:00 05/19/21 09:19 Amlodipine Besylate 5 Mg Tablet PO 5 mg DAILY MAIK Administration Atorvastatin Calcium 5 mg 05/18/21 09:00 05/19/21 09:19 Atorvastatin 5 Mg Tablet PO 5 mg DAILY MAIK Administration Calcium Carbonate 500 mg 05/18/21 17:00 05/19/21 09:20 Calcium/Vitamin D 500 Mg Tablet PO 06/17/21 09:01 500 mg BID MAIK Administration Cyanocobalamin 1,000 mcg 05/18/21 09:00 05/19/21 09:19 Cyanocobalamin 1,000 Mcg Tablet PO 06/17/21 09:01 1,000 mcg BID MAIK Administration Fluticasone Propionate 2 spray 05/18/21 09:00 05/19/21 09:20 Fluticasone Propionate 0.05% Na Spr 16 Gm Btl (*Bkc) NASAL 2 spray DAILY MAIK Administration Heparin Sodium (Porcine) 5,000 units 05/18/21 06:00 05/19/21 13:23 Heparin Sodium 5,000 Units/Ml Vial SUB-Q 5,000 units Q8HR MAIK Administration Lactated Ringer's 1,000 mls @ 50 mls/hr 05/17/21 19:35 05/19/21 13:25 Lr - Lactated Ringers Iv IV CONT 100 mls/hr .Q20H MAIK Administration Isosorbide Dinitrate 10 mg 05/18/21 09:00 05/19/21 13:23 Isosorbide
--- NOTE | 2021-05-19 17:55 | PM.IMPN ---
Progress Note: A&P Assessment and Plan (1) Acute renal failure superimposed on chronic kidney disease: Qualifiers: Acute renal failure type: unspecified Chronic kidney disease stage: unspecified stage Qualified Code(s): N17.9 - Acute kidney failure, unspecified; N18.9 - Chronic kidney disease, unspecified Code(s): N17.9 - Acute kidney failure, unspecified; N18.9 - Chronic kidney disease, unspecified Status: Acute (2) Acute hyperkalemia: Code(s): E87.5 - Hyperkalemia Status: Acute (3) Obstructive sleep apnea: Code(s): G47.33 - Obstructive sleep apnea (adult) (pediatric) Status: Acute Additional Plan # Acute on chronic renal failure stage III baseline creatinine in February 16. currently at 3.3. Likely due to over-diuresis will gentle hydrate urine lytes renal ultrasound nephrology consultation. Hold diuretics and telmisartan # Exertional dyspnea with bilateral lower extremity edema diagnosed with diastolic heart failure sees Dr. faith. Not tolerated diuresis with worsening renal function and hence referred to renal. Lexiscan done in [address] abdomen also showed possible NSIP. She was also recently diagnosed with sleep apnea and currently using CPAP. # Possible NSIP possible pulmonary edema. High-resolution CT scan chest to further evaluate. BNP only 244 # BURT on CPAP # Lower extremity edema venous duplex was negative amlodipine lowered now resolved with diuretic use # Hypertension # Hyperlipidemia # Pulmonary hypertension # Obesity # DVT prophylaxis heparin subQ # full code 05/19/21 17:55 05/18 patient is 80-year-old female was seen by Nephrology for bilateral lower extremity edema initially was started on Lasix 40 mg b.i.d. and was increased to t.i.d. and ARB this did improve her lower extremity edema and she lost 16 lb however her serum creatinine leslie from 1.2 to 3.3 upon arrival, patient is seen by Nephrology, kidney ultrasound is normal without hydronephrosis, Lasix is on hold and started the patient gentle hydration 50 cc an hour and today her creatinine is 2.6 will continue present management, patient clinically stable denies any complaint sub dominant pain nausea or vomiting, chest pain or shortness of breath, appreciate nephrology further recommendation to follow 05/19 patient with acute on chronic kidney disease secondary to over-diuresis, a patient is being gently hydrated her serum creatinine has improved today 1.7 compared to 3.3 upon arrival, will continue to hydrate the patient, patient be seen meat seafood associate and further recommendation to follow, will have PT OT evaluate and further recommendation to follow. Subjective Date/time seen: 05/19/21 17:55 05/18 patient is 80-year-old female was seen by Nephrology for bilateral lower extremity edema initially was started on Lasix 40 mg b.i.d. and was increased to t.i.d. and ARB this did improve her lower extremity edema and she lost 16 lb however her serum creatinine leslie from 1.2 to 3.3 upon arrival, patient is seen by Nephrology, kidney ultrasound is normal without hydronephrosis, Lasix is on hold and started the patient gentle hydration 50 cc an hour and today her creatinine is 2.6 will continue present management, patient clinically stable denies any complaint sub dominant pain nausea or vomiting, chest pain or shortness of breath, appreciate nephrology further recommendation to follow 05/19 patient with acute on chronic kidney disease secondary to over-diuresis, a patient is being gently hydrated her serum creatinine has improved today 1.7 compared to 3.3 upon arrival, will continue to hydrate the patient, patient be seen meat seafood associate and further recommendation to follow, will have PT OT evaluate and further recommendation to follow. Review of Systems Review of Systems: All systems reviewed & are unremarkable except as noted in HPI and below Exam Narrative: moderately obese Patient is comfortable, NAD HEENT: eyes
[2021-05-20] VITALS: PULSE 43
[2021-05-20 04:00] VITALS: PULSE 44
[2021-05-20] MEDS: HEPARIN SODIUM 5,000 UNITS/ML VIAL 5000 UNITS SUB-Q (05:25)
[2021-05-20 05:31] VITALS: BP 112/51; PULSE 44; RESP 16; TEMP 37; O2SAT 97
[2021-05-20 06:01] LABS: Hematocrit 36.7 % (37.0-47.0); Hemoglobin 11.4 g/dL (12.0-15.0); Mean Corpuscular HGB Conc 31.1 g/dl (32-36); Mean Corpuscular Hemoglobin 30.2 pg (26-34); Mean Corpuscular Volume 97.3 fl (80-100); Mean Platelet Volume 11.2 fl (7.4-10.4); Platelet Count Result 127 k/mm3 (150-375); Red Blood Count 3.77 M/mm3 (4.2-5.4)
[2021-05-20 06:24] LABS: Albumin 3.6 g/dL (3.8-4.8); Alpha 1 Globulin 0.3 g/dL (0.2-0.3); Alpha 2 Globulin 0.7 g/dL (0.5-0.9); Beta 1 Globulin 0.4 g/dL (0.4-0.6); Gamma Globulin 0.8 g/dL (0.8-1.7); Protein, Total 6.1 g/dL (6.1-8.1)
[2021-05-20 07:08] LABS: Albumin Level 3.4 g/dL (3.5-5.1); Anion Gap 5 mmol/L (8-16); Blood Urea Nitrogen 36 mg/dL (7-17); Calcium 9.6 mg/dL (8.4-10.2); Carbon Dioxide 23 mmol/L (22-30); Chloride 114 mmol/L (98-107); Estimated CRCL calculation 33 ml/min; Estimated Glomerular Filt Rate 36; Glucose 92 mg/dL (65-110); Phosphorus 3.5 mg/dL (2.5-4.5); Potassium 5.2 mmol/L (3.4-5.0); Sodium 142 mmol/L (137-145)
[2021-05-20] MEDS: FLUTICASONE PROPIONATE 0.05% NA SPR 16 GM BTL (*BKC) 2 SPRAY NASAL (07:44)
[2021-05-20] MEDS: CYANOCOBALAMIN 1,000 MCG TABLET 1000 MCG PO (07:45)
[2021-05-20] MEDS: ISOSORBIDE DINITRATE 10 MG TABLET PO (07:45)
[2021-05-20] MEDS: ATORVASTATIN 5 MG TABLET PO (07:45)
[2021-05-20] MEDS: amLODIPine BESYLATE 5 MG TABLET PO (07:46)
[2021-05-20 08:00] VITALS: PULSE 59
[2021-05-20] MEDS: SODIUM POLYSTYRENE SULFONONATE 15 GM/60 ML BTL PO (09:01)
--- NOTE | 2021-05-20 09:24 | PM.PNNEP ---
Progress Note: A&P Assessment and Plan (1) BRANDON (acute kidney injury): Code(s): N17.9 - Acute kidney failure, unspecified Status: Acute Assessment and Plan: resolving suspect due to overdiuresis in the setting of ARB use creatinine better/improved since admission with gentle IVF hydration follow trend of repeat labs and UOP (2) Stage 3b chronic kidney disease: Code(s): N18.32 - Chronic kidney disease, stage 3b Status: Acute Assessment and Plan: creatinine had been running around 1.2 - 1.6mg/dl since early 2020 rise in creatinine noted in late March 2021 - leslie to 2.3 - 2.4mg/dl etiology due to hypertension and chronic prerenal azotemia due to necessity of diuretics to treat her swelling/edema and possibly BURT - swelling/edema thought to due to her pulmonary HTN this may be a situation where we have accept a higher creatinine in an effort to maintain her fluid status (3) Hyperkalemia: Code(s): E87.5 - Hyperkalemia Status: Acute Assessment and Plan: due to #1 better s/p medical managment (4) Pulmonary HTN: Code(s): I27.20 - Pulmonary hypertension, unspecified Status: Acute Assessment and Plan: as documented by Echo suspect etiology of issues related to swelling/edema (5) Hypertension: Code(s): I10 - Essential (primary) hypertension Status: Acute Assessment and Plan: reasonable control at this time follow trend of hemodynamics Would not be opposed to discharge later today from renal perspective if otherwise medically stable. Will continue to follow. Subjective Date/time seen: 05/20/21 09:24 Appears to be feeling significantly better since admission with IVF hydration -- no complaints of lightheadedness, dizziness, or unsteady gait; no other acute complaints voiced at the time of my visit; no issues/events overnight or earlier this AM. Exam Narrative: General: WD/WN female in NAD Heart: normal S1 and S2; no rub Lungs: clear to auscultation Abdomen: soft, nontender, nondistended, positive bowel sounds Extremities: no cyanosis or clubbing; no edema Skin: warm and intact Objective Data Vital Signs Vital Signs: Vital Signs Temp Pulse Resp BP Pulse Ox 05/20/21 05:31 37.0 C 44 L 16 112/51 L 97 05/20/21 04:00 44 L 05/20/21 00:00 43 L 05/19/21 22:00 37.0 C 49 L 16 132/46 L 98 05/19/21 20:00 43 L 05/19/21 16:00 45 L 05/19/21 14:00 35.8 C L 98 18 145/46 H 97 05/19/21 12:00 48 L Intake/Output Intake/Output: Intake & Output 05/17/21 05/18/21 05/19/21 05/20/21 23:59 23:59 23:59 23:59 Intake Total 2560 3870 540 Output Total 1200 650 Balance 1360 3220 540 Meds/Results Medications: Active Medications Generic Name Dose Route Start Last Admin Trade Name Mario PRN Reason Stop Dose Admin Amlodipine Besylate 5 mg 05/18/21 09:00 05/20/21 07:46 Amlodipine Besylate 5 Mg Tablet PO 5 mg DAILY MAIK Administration Atorvastatin Calcium 5 mg 05/18/21 09:00 05/20/21 07:45 Atorvastatin 5 Mg Tablet PO 5 mg DAILY MAIK Administration Calcium Carbonate 500 mg 05/18/21 17:00 05/20/21 07:44 Calcium/Vitamin D 500 Mg Tablet PO 06/17/21 09:01 500 mg BID MAIK Administration Cyanocobalamin 1,000 mcg 05/18/21 09:00 05/20/21 07:45 Cyanocobalamin 1,000 Mcg Tablet PO 06/17/21 09:01 1,000 mcg BID MAIK Administration Fluticasone Propionate 2 spray 05/18/21 09:00 05/20/21 07:44 Fluticasone Propionate 0.05% Na Spr 16 Gm Btl (*Bkc) NASAL 2 spray DAILY MAIK Administration Heparin Sodium (Porcine) 5,000 units 05/18/21 06:00 05/20/21 05:25 Heparin Sodium 5,000 Units/Ml Vial SUB-Q 5,000 units Q8HR MAIK Administration Isosorbide Dinitrate 10 mg 05/18/21 09:00 05/20/21 07:45 Isosorbide Dinitrate 10 Mg Tablet PO 10 mg TID MAIK Administration Radiology Results: ITS Impressions Ch
[2021-05-20 09:42] LABS: Anion Gap 9 mmol/L (8-16); Blood Urea Nitrogen 35 mg/dL (7-17); Carbon Dioxide 21 mmol/L (22-30); Chloride 113 mmol/L (98-107); Estimated CRCL calculation 33 ml/min; Estimated Glomerular Filt Rate 36; Glucose 163 mg/dL (65-110); Magnesium 1.9 mg/dL (1.6-2.3); Potassium 4.8 mmol/L (3.4-5.0); Sodium 143 mmol/L (137-145)
--- NOTE | 2021-05-20 09:46 | PM.DS ---
DS: Admitting Diagnosis Admitting Diagnosis abnormal labs DS: Discharge Diagnosis Discharge Diagnosis (1) Acute renal failure superimposed on chronic kidney disease: Qualifiers: Acute renal failure type: unspecified Chronic kidney disease stage: unspecified stage Qualified Code(s): N17.9 - Acute kidney failure, unspecified; N18.9 - Chronic kidney disease, unspecified Code(s): N17.9 - Acute kidney failure, unspecified; N18.9 - Chronic kidney disease, unspecified Status: Acute (2) Acute hyperkalemia: Code(s): E87.5 - Hyperkalemia Status: Acute (3) Obstructive sleep apnea: Code(s): G47.33 - Obstructive sleep apnea (adult) (pediatric) Status: Acute DS: Summary Hospital Course Reason for hospitalization: Chief Complaint: abnormal labs Narrative: Patient is a 80-year-old female sent here by her research study assistant due to elevated creatinine. Patient had her blood work done earlier today at her primary care's office. She was called by her research study assistant to go to the ER for further evaluation due to worsening of her kidney function. She was noted to have creatinine of 3.3 with potassium of 5.8. She has been given albuterol neb and insulin and dextrose in the ER for hyperkalemia. She has also been started on IV fluids in the ER. She states that she has been feeling short of breath for for years so for which her primary care doctor referred her to a shore hand dredge or barge. She saw Dr. faith and had workup done with echocardiogram. Dr. Faith referred her to Dr. Salinas due to bilateral lower extremity edema. She was already on Lasix 40 mg twice a day and amlodipine 10 mg a day. After seeing Dr. Salinas Lasix was increased to 3 times a day and amlodipine was lowered to 5 mg a day since then which is couple weeks ago she has lost 16 lb and has also resolved her lower extremity edema. She is noted to have a baseline creatinine of 1.2 back in February which has progressively gotten worse to around mid 2s in March and now 3.3. She denies any other symptoms in particular nose chest pain or nausea vomiting or abdominal pain. No diarrhea or constipation reported. She also has not been treated with any antibiotics recently or any new medication that was started other than what is mentioned above. She is admitted for further evaluation and manage Hospital Course: Patient was discharged on 05/20/2021 # Acute on chronic renal failure stage III baseline creatinine in February 1.2 currently at 3.3. Likely due to over-diuresis will gentle hydrate urine lytes renal ultrasound nephrology consultation. Hold diuretics and telmisartan # Exertional dyspnea with bilateral lower extremity edema diagnosed with diastolic heart failure sees Dr. faith. Not tolerated diuresis with worsening renal function and hence referred to renal. Lexiscan done in [address] abdomen also showed possible NSIP. She was also recently diagnosed with sleep apnea and currently using CPAP. # Possible NSIP possible pulmonary edema. High-resolution CT scan chest to further evaluate. BNP only 244 # BURT on CPAP # Lower extremity edema venous duplex was negative amlodipine lowered now resolved with diuretic use # Hypertension # Hyperlipidemia # Pulmonary hypertension # Obesity # DVT prophylaxis heparin subQ # full code 05/19/21 17:55 05/18 patient is 80-year-old female was seen by Nephrology for bilateral lower extremity edema initially was started on Lasix 40 mg b.i.d. and was increased to t.i.d. and ARB this did improve her lower extremity edema and she lost 16 lb however her serum creatinine leslie from 1.2 to 3.3 upon arrival, patient is seen by Nephrology, kidney ultrasound is normal without hydronephrosis, Lasix is on hold and started the patient gentle hydration 50 cc an hour and today her creatinine is 2.6 will continue present management, patient clinically stable denies any complaint sub dominant pain nausea or vomiting, chest pain or shortness of breath,
[2021-05-23 00:29] LABS: ANCA Screen Negative (Negative)
[2021-05-23 05:39] LABS: Creatinine, Random Urine 36 mg/dL (20-275); Total Protein/Creatinine Ratio 139 mg/g creat (21-161)
[2021-05-26 20:44] LABS: Albumin 51 %; Measured Kappa Chains <1.00 mg/dL (<2.00); Measured Lambda Chains <1.00 mg/dL (<2.00); Pro/Creat Ratio 160 mg/g creat (<=114)
== END 2021-05-20 12:15 | disposition home or self-care (01) | DRG 683 ==
LOC: ANHED 19:39 → ANH3MED 21:09
PROVIDERS: Emergency Medicine; Internal Medicine; Admitting Provider Internal Medicine; Emergency Provider Emergency Medicine; PCP Internal Medicine; Visit Provider Family Medicine
DX: N17.9 Acute kidney failure, unspecified (principal); I13.0 Hypertensive heart and chronic kidney disease with heart failure and stage 1 through stage 4 chronic kidney disease, or unspecified chronic kidney disease; I50.30 Unspecified diastolic (congestive) heart failure; I27.20 Pulmonary hypertension, unspecified; N18.32 Chronic kidney disease, stage 3b; G47.33 Obstructive sleep apnea (adult) (pediatric); E87.6 Hypokalemia; E66.9 Obesity, unspecified; E78.5 Hyperlipidemia, unspecified; Z79.899 Other long term (current) drug therapy
CPT/HCPCS: 36415; 71046; 71250; 76775; 80048; 80069; 81003; 82550; 82570; 83735; 83880; 84155; 84156; 84165; 84166; 84300; 84484; 85025; 85027; 85610; 85730; 85999; 86021; 86038; 86160; 86334; 86335; 93005; 94640; 96361; 96374; 96375; 99285; A9270; G0378; J1644; J1815; J7120

== ENCOUNTER 2022-12-01 12:44 | Outpatient (CLI) | payer MEDICARE, OTHER, SELFPAY ==
[2022-12-01 13:52] LABS: NT Pro B Type Natriuretic Pept 196 pg/mL (19.9-100)
== END 2022-12-01 12:45 | disposition home or self-care (01) ==
LOC: ANHLAB 12:47
PROVIDERS: PCP Internal Medicine; Visit Provider Nurse Practitioner Adult Health
DX: I50.32 Chronic diastolic (congestive) heart failure (principal)
CPT/HCPCS: 36415; 83880

== ENCOUNTER 2023-03-20 10:45 | Outpatient (CLI) | payer MEDICARE, OTHER, SELFPAY ==
--- NOTE | ~2023-03-20 | XR_ITS ---
Clinical Indication: Dyspnea PA and lateral views of the chest: Comparison: 05/17/2021 Findings: Stable probable calcified left basilar granuloma. The lungs are otherwise clear, without ev idence of focal consolidation or pleural effusion. Cardiomediastinal silhouette is within normal low its. Bones and soft tissues are unremarkable. Impression: No acute abnormality. Reviewed, dictated and finalized at location . Impression: No acute abnormality.
== END 2023-03-20 10:46 | disposition home or self-care (01) ==
PROVIDERS: PCP Internal Medicine; Visit Provider Internal Medicine Nephrology
DX: R06.00 Dyspnea, unspecified (principal); N18.32 Chronic kidney disease, stage 3b
CPT/HCPCS: 71046

== ENCOUNTER 2024-05-22 13:47 | Outpatient (CLI) | payer MEDICARE, OTHER, SELFPAY ==
--- NOTE | ~2024-05-22 | CT_ITS ---
EXAMINATION:CT diagnostic chest wo con DATE: 05/22/2024 15:11 INDICATION: Dyspnea, unspecified. TECHNIQUE: Computed tomography (CT) of the chest was performed without intravenous contrast. Automate d exposure control and iterative reconstruction technique were employed. The dose-length product (DLP ) was 640.65 mGy-cm. COMPARISON: Chest CT 05/18/2021 FINDINGS: There are heterogeneous areas of septal thickening in the lungs with architectural distorti on associated with groundglass opacities with a lower lung predominance. There is bronchiectasis in t he lungs with a lower lung predominance. No honeycombing. There are two stable 5 mm nodules in right lower lobe. A calcified left lung nodule and calcified left hilar and mediastinal lymph nodes are con sistent with old edematous disease. No pleural effusion. Cardiomegaly is noted. No pericardial effusi on. There is a small sliding hiatal hernia. There is diffuse hepatic steatosis. Calcifications in the spleen are consistent with old granulomatous disease. There are bridging endplate osteophytes at mul tiple levels in the spine, consistent with diffuse idiopathic skeletal hyperostosis (DISH). IMPRESSION: 1. Stable chronic interstitial lung disease in a pattern of nonspecific interstitial pneumonia (NSIP) . Reviewed, dictated and finalized at location A. IMPRESSION: 1. Stable chronic interstitial lung disease in a pattern of nonspecific interst itial pneumonia (NSIP).
--- NOTE | 2024-05-22 16:33 | WPDSIXMINUTE ---
Six Minute Walk Procedure Procedure Performed Pulmonary Stress Test (6 min walk) Six Minute Walk Six Minute Walk: This is a 6 minute walk test. The test was performed and interpreted in accordance with the 2014 ERS/ATS task force guidelines. Findings: The patient's resting room air oxygen saturation measured by pulse oximetry was 99% and heart rate was 50 bpm. Patient ambulated for 305 meters and oxygen saturation remained 95 to 97%. Heart rate at the end of the study was 109 bpm. The patient did not qualify for supplemental oxygen at rest or with ambulation. There are no prior studies for comparison.
--- NOTE | 2024-05-22 16:34 | WPDPFTINT ---
PFT Procedure Performed PFT Procedure Performed Spirometry with Pre/Post Bronchodilator Plethysmography (Lung Vol) Diffusing Cap (DLCO) Flow Vol Loop PFT Interpretation This is a pulmonary function test with pre and post-bronchodilator spirometry, plethysmography and diffusing capacity. The test was performed and results interpreted in accordance with the 2019 and 2005 ATS/ERS Task Force guidelines respectively using the Global Lung Function Initiative-2012 reference equations. Patient demonstrated good effort and cooperation. Reproducibility criteria were met. The quality of the pre bronchodilator spirometry maneuver was Grade A and post bronchodilator spirometry maneuver was Grade A. Findings: Spirometry: The contour the inspiratory and expiratory flow tracing are normal. The pre bronchodilator FVC is 2.52 L, 105% predicted. The pre bronchodilator FEV1 is 1.96 L, 108% predicted. The pre bronchodilator FEV1: FVC ratio is 78%. The post bronchodilator FVC is 2.54 L, representing 1% increase. The post bronchodilator FEV1 is 2.03 L, representing a 3% increase. The post bronchodilator FEV1: FVC ratio is 80%. Plethysmography: The total lung capacity is 3.30 L, 67% predicted. The functional residual capacity is 1.05 L, 37% predicted. The residual volume is 0.77 L, 32% predicted. Diffusing capacity: The diffusing capacity unadjusted for hemoglobin and carboxyhemoglobin is 13.0, 69% predicted. The diffusing capacity adjusted for alveolar volume is 3.73, 90% predicted. Impression: There is a mild restrictive ventilatory abnormality with a normal FEV1. The spirometry is normal without evidence of an obstructive abnormality. There is no significant improvement after inhaling a single dose of albuterol. The diffusing capacity is normal. There are no prior studies for comparison
== END 2024-05-22 13:48 | disposition home or self-care (01) ==
LOC: ANHPFT 13:50
PROVIDERS: PCP Physician Assistant; Visit Provider Physician Assistant
DX: R06.00 Dyspnea, unspecified (principal); R94.2 Abnormal results of pulmonary function studies; J98.4 Other disorders of lung
CPT/HCPCS: 71250; 94060; 94618; 94726; 94729

== ENCOUNTER 2024-05-27 14:28 | Outpatient (CLI) | payer MEDICARE, OTHER, SELFPAY ==
[2024-05-29 15:28] LABS: ANA Cascade Screen NEGATIVE (NEGATIVE)
[2024-06-08 15:14] LABS: Aspergillus fumigatus NEGATIVE (NEGATIVE)
== END 2024-05-27 14:29 | disposition home or self-care (01) ==
PROVIDERS: PCP Physician Assistant; Visit Provider Internal Medicine Critical Care Medicine
DX: I27.20 Pulmonary hypertension, unspecified (principal)
CPT/HCPCS: 36415; 86038; 86225; 86235; 86364

== ENCOUNTER 2024-07-30 11:18 | Outpatient (CLI) | payer MEDICARE, OTHER, SELFPAY ==
[2024-07-30 12:05] LABS: Rheumatoid Factor < 12.0 IU/ML (<12)
[2024-07-31 14:49] LABS: Anti Cyclic Citrullinated Pept <16 UNITS
== END 2024-07-30 11:19 | disposition home or self-care (01) ==
PROVIDERS: PCP Physician Assistant; Visit Provider Internal Medicine Critical Care Medicine
DX: J84.89 Other specified interstitial pulmonary diseases (principal)
CPT/HCPCS: 36415; 86200; 86430

== ENCOUNTER 2025-03-10 11:54 | Outpatient (CLI) | payer MEDICARE, OTHER, SELFPAY ==
[2025-03-10 13:12] LABS: Albumin Level 4.2 g/dL (3.5-5.1); Anion Gap 11 mmol/L (4-12); Blood Urea Nitrogen 33 mg/dL (7-17); CRP 2.8 mg/dL (<1.0); Carbon Dioxide 27 mmol/L (22-30); Chloride 104 mmol/L (98-107); Estimated Glomerular Filt Rate 33; Glucose 223 mg/dL (65-110); Phosphorus 3.3 mg/dL (2.5-4.5); Potassium 3.8 mmol/L (3.4-5.0); Sodium 142 mmol/L (137-145)
[2025-03-10 13:14] LABS: Add Urine Microscopic? YES; Appearance Urine Clear (Clear); Bacteria Urine None Seen /hpf; Bilirubin Urine Negative (Negative); Blood Urine Negative (Negative); Color Urine Yellow (Yellow); Glucose Urine UA Negative (Negative); Ketones Urine Negative (Negative); Leukocyte Esterase Ur 1+ LEU/UL (Negative); Need Manual Microscopic Reviewed; Nitrate Urine Negative (Negative); Protein Urine Negative (Negative); RBC Urine 0-2 /hpf (0-2); Specific Grav Ur 1.008 (1.001-1.035); Squamous Epithelial Cell Urine None Seen /hpf (Few); Urobilinogen Urine 0.2 mg/dL (<2.0); WBC Urine 0-5 /hpf (0-3); pH Urine 5.5 (5.0-9.0)
[2025-03-10 13:18] LABS: Erythrocyte Sedimentation Rate 36 mm/hr (0-20)
[2025-03-10 13:20] LABS: Complement C3 155 mg/dL (88-165)
[2025-03-10 13:39] LABS: Creatinine Urine 69.1 mg/dL; Total Protein Urine Random 8 mg/dL; Ur Ttl Prot Creatinine Ratio 0.12 mg/mg (0-0.20)
[2025-03-12 03:37] LABS: SM Antibody <1.0 NEG AI (<1.0 NEG); SM/RNP Antibody <1.0 NEG AI (<1.0 NEG); SS-A <1.0 NEG AI (<1.0 NEG); SS-B <1.0 NEG AI (<1.0 NEG)
[2025-03-12 14:39] LABS: Complement Total CH50 >60 U/mL (31-60)
[2025-03-13 08:49] LABS: ANCA Screen NEGATIVE (NEGATIVE)
== END 2025-03-10 11:55 | disposition home or self-care (01) ==
PROVIDERS: PCP Physician Assistant; Visit Provider Internal Medicine Nephrology
DX: N18.32 Chronic kidney disease, stage 3b (principal); R76.0 Raised antibody titer
CPT/HCPCS: 36415; 80069; 81001; 82570; 82595; 83520; 84156; 85652; 86036; 86038; 86039; 86140; 86160; 86162; 86225; 86235